=== PATIENT | female | born 1970 | race Caucasian/White ===

== ENCOUNTER 2016-09-26 14:22 | Outpatient (CLI) | payer MEDICARE ==
[2016-09-26 15:07] LABS: Hemoglobin A1c 4.2 % (4.0-6.0)
[2016-09-26 15:13] LABS: #Basophils 0.1 thou/uL (0.0-0.2); #Eosinphils 0.1 thou/uL (0.0-0.7); #Lymphocytes 2.6 thou/uL (1.20-3.40); #Monocytes 0.6 thou/uL (0.11-0.59); #Neutrophils 5.3 thou/uL (1.40-6.50); %Basophils 1.3 % (0.0-1.0); %Eosinophils 0.7 % (0.0-10.0); %Monocytes 6.9 % (0.0-10.0); %Neutrophils 61.1 % (42.0-75.0); Hemoglobin 13.3 g/dL (12.0-16.0); Mean Corpuscular HGB CONC 34.1 g/dL (32.0-36.0); Mean Corpuscular Hemoglobin 32.2 pg (27.0-31.0); Mean Corpuscular Volume 94.3 fl (81.0-99.0); Mean Platelet Volume 7.9 fL (7.4-10.4); Platelet Count 307 thou/uL (130-400); RBC Distribution Width 11.2 % (11.5-14.5); Red Blood Cell (RBC) Count 4.14 mill/uL (4.20-5.40); White Blood Cell (WBC) Count 8.7 thou/uL (4.8-10.8)
[2016-09-26 15:21] LABS: ALT (SGPT) 6 U/L (8-55); AST (SGOT) 14 U/L (5-34); Albumin 4.4 g/dL (3.5-5.0); Alkaline Phosphatase 51 U/L (40-150); Anion Gap 14 mmol/L (10-20); BUN (Urea Nitrogen) 11 mg/dL (7.0-18.7); Bilirubin, Direct 0.7 mg/dL (0.1-0.3); Bilirubin, Total 1.9 mg/dL (0.2-1.2); Calc. Creatinine Clearance 0 mL/min (70-130); Carbon Dioxide 25 mmol/L (22-29); Cardiac Risk 1.9 (Less than 4.5); Chloride 101 mmol/L (98-107); Cholesterol 190 mg/dl (< 200 Desired); Estimated GFR-MDRD 77; Glucose 85 mg/dL (70-105); HDL Cholesterol 98 mg/dL (>60 Neg Risk); LDL Cholesterol, Calculated 73 mg/dL; Potassium 4.2 mmol/L (3.5-5.1); Protein, Total 7.4 g/dL (6.0-8.3); Sodium 136 mmol/L (136-145); Triglycerides 95 mg/dL (Less than 150)
[2016-09-26 15:30] LABS: Free T4 (Free Thyroxine) 0.81 ng/dL (0.70-1.48); Thyroid Stimulating Hormone 1.7656 uIU/mL (0.35-4.94)
== END 2016-09-26 14:23 | disposition home or self-care (01) ==
LOC: MADLABBHPM 14:22
PROVIDERS: ATTEND Family Medicine
DX: Z00.00 Encounter for general adult medical examination without abnormal findings (principal); Z86.19 Personal history of other infectious and parasitic diseases
CPT/HCPCS: 36415; 80053; 80061; 82248; 83036; 84439; 84443; 85025

== ENCOUNTER 2017-10-11 09:57 | Outpatient (CLI) | payer MEDICARE ==
--- NOTE | 2017-10-11 11:53 | ULT ---
RIGHT UPPER QUADRANT ULTRASOUND: Date: 10/11/17 HISTORY: Epigastric pain, bloating, reflux, nausea. FINDINGS: The liver, pancreas, right kidney, and visualized portions of the IVC and aorta appear normal. There are multiple shadowing mobile echogenic gallstones without gallbladder wall thickening or pericholecy stic fluid. No free fluid is seen in Morison's pouch. IMPRESSION: Cholelithiasis. POS: OFF
== END 2017-10-11 09:58 | disposition home or self-care (01) ==
LOC: MADRAD 09:57
PROVIDERS: ATTEND Family Medicine
DX: R10.11 Right upper quadrant pain (principal); K80.20 Calculus of gallbladder without cholecystitis without obstruction
CPT/HCPCS: 76705

== ENCOUNTER 2020-06-04 15:09 | Emergency (ER) | payer MEDICARE ==
[2020-06-04] MEDS ORDERED: Cephalexin 500 MG CAP ONE (15:47)
== END 2020-06-04 16:00 | disposition home or self-care (01) ==
LOC: MADERS 15:09
DX: T79.8XXA Other early complications of trauma, initial encounter (principal); I10 Essential (primary) hypertension
CPT/HCPCS: 87070; 87205; 99283

== ENCOUNTER 2020-06-10 20:18 | Emergency (ER) | payer MEDICARE ==
[2020-06-10 20:55] LABS: #Basophils 0.2 thou/uL (0.0-0.2); #Eosinphils 0.3 thou/uL (0.0-0.7); #Monocytes 0.9 thou/uL (0.11-0.59); #Neutrophils 4.5 thou/uL (1.40-6.50); %Basophils 1.7 % (0.0-1.0); %Eosinophils 2.5 % (0.0-10.0); %Lymphocytes 45.9 % (21.0-51.0); %Monocytes 8.5 % (0.0-10.0); %Neutrophils 41.4 % (42.0-75.0); Hemoglobin 12.8 g/dL (12.0-16.0); Mean Corpuscular HGB CONC 32.7 g/dL (32.0-36.0); Mean Corpuscular Hemoglobin 31.5 pg (27.0-31.0); Mean Corpuscular Volume 96.2 fL (78.0-98.0); Mean Platelet Volume 7.4 fL (7.4-10.4); Platelet Count 343 thou/uL (130-400); Red Blood Cell (RBC) Count 4.06 mill/uL (4.20-5.40); White Blood Cell (WBC) Count 10.9 thou/uL (4.8-10.8)
[2020-06-10] MEDS ORDERED: Sodium Chloride 0.9% 1,000 ML ONE (20:55)
[2020-06-10] MEDS ORDERED: Metoclopramide HCl 10 MG/2 ML VIAL ONE (20:55)
[2020-06-10] MEDS ORDERED: diphenhydrAMINE 50 MG/ML VIAL ONE (20:55)
[2020-06-10] MEDS ORDERED: Ketorolac Tromethamine 30 MG/ML VIAL ONE (20:55)
[2020-06-10 21:13] LABS: Anion Gap 16 mmol/L (10-20); BUN (Urea Nitrogen) 18 mg/dL (9.8-20.1); Calc. Creatinine Clearance 0 mL/min (70-130); Calcium 8.9 mg/dL (7.8-10.44); Carbon Dioxide 25 mmol/L (22-29); Chloride 105 mmol/L (98-107); Glucose 81 mg/dL (70-105); Potassium 4.1 mmol/L (3.5-5.1); Sodium 142 mmol/L (136-145)
== END 2020-06-10 21:48 | disposition home or self-care (01) ==
LOC: MADERS 20:18
DX: G43.909 Migraine, unspecified, not intractable, without status migrainosus (principal); I10 Essential (primary) hypertension
CPT/HCPCS: 80048; 85025; 96374; 96375; J1200; J1885; J2765; J7050

== ENCOUNTER 2021-08-11 11:56 | Outpatient (CLI) | payer MEDICARE, OTHER | END 2021-08-11 11:57 | disposition home or self-care (01) | LOC: MADRAD 11:56 | PROVIDERS: ATTEND Family Medicine | DX: S91.301A Unspecified open wound, right foot, initial encounter (principal); L03.115 Cellulitis of right lower limb; M79.89 Other specified soft tissue disorders ==

== ENCOUNTER 2021-09-28 17:06 | Outpatient (CLI) | payer MEDICARE, OTHER ==
[2021-09-28 18:51] LABS: Anion Gap 13 mmol/L (10-20); BUN (Urea Nitrogen) 15 mg/dL (9.8-20.1); Calc. Creatinine Clearance 0 mL/min (70-130); Calcium 9.5 mg/dL (7.8-10.44); Carbon Dioxide 25 mmol/L (22-29); Chloride 106 mmol/L (98-107); Estimated GFR 71; Glucose 101 mg/dL (70-105); Potassium 4.1 mmol/L (3.5-5.1); Sodium 140 mmol/L (136-145)
== END 2021-09-28 17:07 | disposition home or self-care (01) ==
LOC: MADLAB 17:06
PROVIDERS: ATTEND Family Medicine
DX: R60.0 Localized edema (principal)
CPT/HCPCS: 36415; 80048

== ENCOUNTER 2021-12-20 19:03 | Emergency (ER) | payer MEDICARE ==
[2021-12-20 19:57] LABS: #Basophils 0.1 thou/uL (0.0-0.2); #Eosinphils 0.3 thou/uL (0.0-0.7); #Lymphocytes 3.3 thou/uL (1.20-3.40); #Monocytes 0.7 thou/uL (0.11-0.59); #Neutrophils 4.8 thou/uL (1.40-6.50); %Basophils 1.4 % (0.0-1.0); %Eosinophils 3.1 % (0.0-10.0); %Lymphocytes 35.6 % (21.0-51.0); %Monocytes 7.6 % (0.0-10.0); %Neutrophils 52.4 % (42.0-75.0); Hemoglobin 13.9 g/dL (12.0-16.0); Mean Corpuscular HGB CONC 33.8 g/dL (32.0-36.0); Mean Corpuscular Hemoglobin 31.3 pg (27.0-31.0); Mean Corpuscular Volume 92.4 fl (78.0-98.0); Platelet Count 322 10x3/uL (130-400); RBC Distribution Width 11.4 % (11.5-14.5); Red Blood Cell (RBC) Count 4.46 mill/uL (4.20-5.40); White Blood Cell (WBC) Count 9.2 10x3/uL (4.8-10.8)
[2021-12-20 20:07] LABS: Prothrombin Time 13.4 sec (12.0-14.7)
[2021-12-20 20:18] LABS: ALT (SGPT) Less than 7 U/L (8-55); AST (SGOT) 11 U/L (5-34); Albumin 4.3 g/dL (3.5-5.0); Alkaline Phosphatase 67 U/L (40-110); Anion Gap 13 mmol/L (10-20); BUN (Urea Nitrogen) 17 mg/dL (9.8-20.1); Bilirubin, Total 0.9 mg/dL (0.2-1.2); CK (CPK) 80 U/L (29-168); Calc. Creatinine Clearance 0 mL/min (70-130); Calcium 9.7 mg/dL (7.8-10.44); Carbon Dioxide 26 mmol/L (22-29); Chloride 107 mmol/L (98-107); Estimated GFR 66; Globulin 2.9 g/dL (2.4-3.5); Glucose 100 mg/dL (70-105); Potassium 4.1 mmol/L (3.5-5.1); Protein, Total 7.2 g/dL (6.0-8.3); Sodium 142 mmol/L (136-145)
[2021-12-20 20:23] LABS: PTT 30.5 sec (22.9-36.1)
== END 2021-12-20 20:36 | disposition home or self-care (01) ==
LOC: MADERS 19:03
DX: Z03.89 Encounter for observation for other suspected diseases and conditions ruled out (principal)
CPT/HCPCS: 36415; 80053; 82550; 85025; 85610; 85730; 99283

== ENCOUNTER 2022-01-14 14:32 | Emergency (ER) | payer MEDICARE ==
[2022-01-14] MEDS ORDERED: Ziprasidone 20 MG VIAL ONE (14:50)
[2022-01-14] MEDS ORDERED: Sterile Water 10 ML ONE (14:52)
== END 2022-01-14 15:59 | disposition home or self-care (01) ==
LOC: MADERS 14:32
DX: F29 Unspecified psychosis not due to a substance or known physiological condition (principal); I10 Essential (primary) hypertension
CPT/HCPCS: 96372; 99284; J3486

== ENCOUNTER 2022-08-24 15:19 | Emergency (ER) | payer MEDICARE ==
[2022-08-24] MEDS ORDERED: Bacitracin 1 PK ONE (16:27)
== END 2022-08-24 16:30 | disposition home or self-care (01) ==
LOC: MADERS 15:19
DX: L03.116 Cellulitis of left lower limb (principal); S91.302D Unspecified open wound, left foot, subsequent encounter; I10 Essential (primary) hypertension; F17.210 Nicotine dependence, cigarettes, uncomplicated; K58.9 Irritable bowel syndrome, unspecified; X58.XXXD Exposure to other specified factors, subsequent encounter; Z79.899 Other long term (current) drug therapy
CPT/HCPCS: 87070; 87205